=== PATIENT | male | born 1945 | race Hispanic/Latino ===

== ENCOUNTER 2017-06-06 10:03 | Outpatient (CLI) | payer MEDICARE, MEDICAID ==
[~2017-06-06 10:03] MED LIST: Iopamidol 370 76% 100 ML VIAL ONE
== END 2017-06-06 10:04 | disposition home or self-care (01) ==
LOC: BICCT 10:03
PROVIDERS: ATTEND Internal Medicine Cardiovascular Disease
DX: I71.00 Dissection of unspecified site of aorta (principal); I70.202 Unspecified atherosclerosis of native arteries of extremities, left leg
CPT/HCPCS: 75635

== ENCOUNTER 2018-08-27 05:36 | Outpatient (CLI) | payer MEDICARE, MEDICAID ==
[2018-08-27 14:06] LABS: Hemoglobin 12.6 g/dL (14.0-18.0); Mean Corpuscular Hemoglobin 30.4 pg (27.0-31.0); Mean Corpuscular Volume 89.5 fL (78.0-98.0); Mean Platelet Volume 7.1 fL (7.4-10.4); Platelet Count 277 thou/uL (130-400); RBC Distribution Width 12.7 % (11.5-14.5); Red Blood Cell (RBC) Count 4.13 mill/uL (4.70-6.10); White Blood Cell (WBC) Count 10.9 thou/uL (4.8-10.8)
[2018-08-27 14:12] LABS: Prothrombin Time 13.3 SEC (12.0-14.7)
[2018-08-27 14:29] LABS: Anion Gap 14 mmol/L (10-20); BUN (Urea Nitrogen) 12 mg/dL (8.4-25.7); Calc. Creatinine Clearance 0 mL/min (70-130); Calcium 9.9 mg/dL (7.8-10.44); Carbon Dioxide 25 mmol/L (23-31); Chloride 102 mmol/L (98-107); Estimated GFR-MDRD 76; Glucose 99 mg/dL (80-115); Potassium 4.6 mmol/L (3.5-5.1); Sodium 136 mmol/L (136-145)
--- NOTE | 2018-08-28 07:06 | EKG ---
Test Reason : Blood Pressure : / mmHG Vent. Rate : 052 BPM Atrial Rate : 052 BPM P-R Int : 206 ms QRS Dur : 102 ms QT Int : 436 ms P-R-T Axes : 053 039 -23 degrees QTc Int : 405 ms Sinus bradycardia Possible Inferior infarct , age undetermined Anterior infarct , age undetermined Abnormal ECG Confirmed by DR. Peña CORBIN ([id number]) on 08/28/2018 7:06:12 AM Referred By: SHERRY Confirmed By:DR. Peña CORBIN
== END 2018-08-27 05:37 | disposition home or self-care (01) ==
LOC: LABBT 05:36
PROVIDERS: ATTEND Orthopaedic Surgery
DX: Z01.818 Encounter for other preprocedural examination (principal); M17.11 Unilateral primary osteoarthritis, right knee
CPT/HCPCS: 80048; 85027; 85610; 87081; 93005; 93010

== ENCOUNTER 2018-09-08 06:47 | Day surgery (SDC) | payer MEDICARE, MEDICAID ==
[2018-09-08] MEDS ORDERED: Bupivacaine/Epinephrine 0.25% 30 ML VIAL ONE (06:53)
[2018-09-08] MEDS ORDERED: Vancomycin HCl 1.5 GM in Sodium Chloride 0.9% 250 ML 300 ML IVPB SCH ×2 (07:15→12:30)
[2018-09-08] MEDS ORDERED: Midazolam HCl 2 mg/2 ml Vial ONE ×2 (07:16→07:59)
[2018-09-08] MEDS ORDERED: Fentanyl 100 MCG/2 ML VIAL ONE ×4 (07:16→11:58)
[2018-09-08] MEDS ORDERED: Sodium Chloride 0.9% 100 ML ONE (07:42)
[2018-09-08] MEDS ORDERED: Tranexamic Acid 1,000 MG/10 ML VIAL ONE ×2 (07:42→10:48)
[2018-09-08] MEDS ORDERED: Ondansetron PF 4 MG/2 ML Vial IVP PRN (08:12)
[2018-09-08] MEDS ORDERED: Promethazine HCl 25 MG/ML VIAL IM PRN (08:12)
[2018-09-08] MEDS ORDERED: Fentanyl 100 MCG/2 ML VIAL IV PRN (08:12)
[2018-09-08] MEDS ORDERED: HYDROcodone/Acetaminophen 10/325 mg Tablet PO PRN (08:12)
[2018-09-08] MEDS ORDERED: traMADol HCl 50 MG TAB PO PRN ×3 (08:12→12:16)
[2018-09-08] MEDS ORDERED: Ropivacaine HCl/PF 250 ML in Premix Bag 1 BAG NERVE BLCK SCH (08:12)
[2018-09-08] MEDS ORDERED: Zolpidem Tartrate 5 MG TAB PO PRN (08:12)
[2018-09-08] MEDS ORDERED: Nitroglycerin 2% Ointment 1 INCH/1 GM Packet ONE (08:30)
[2018-09-08] MEDS ORDERED: Tranexamic Acid 1,000 MG in Sodium Chloride 0.9% 100 ML IVPB SCH (10:45)
[2018-09-08] MEDS ORDERED: Ropivacaine 0.2% HCl/PF (40 MG/20 ML VIAL) ONE (11:25)
[2018-09-08] MEDS ORDERED: Ropivacaine 0.5% HCl/PF (150 MG/30 ML VIAL) ONE (11:25)
[2018-09-08] MEDS ORDERED: Dexamethasone 20 MG/5 ML VIAL ONE (11:43)
[2018-09-08] MEDS ORDERED: Lidocaine 1% PF 5 ML VIAL ONE (11:43)
[2018-09-08] MEDS ORDERED: Ondansetron PF 4 MG/2 ML Vial ONE (11:43)
[2018-09-08] MEDS ORDERED: PROPOFOL 200 MG/20 ML VIAL ONE (11:43)
[2018-09-08] MEDS ORDERED: ePHEDrine 50 MG/ML VIAL ONE (11:43)
--- NOTE | 2018-09-08 11:45 | RAD ---
RIGHT KNEE TWO VIEWS: 09/08/18 HISTORY: Postop. Total knee prosthesis is in good position. No signs of fracture. IMPRESSION: Placement of total knee prosthesis. POS: TPC
[2018-09-08] MEDS ORDERED: Ketorolac Tromethamine 30 MG/ML VIAL IVP SCH (12:00)
[2018-09-08] MEDS ORDERED: Acetaminophen 325 MG TAB PO PRN (12:16)
[2018-09-08] MEDS ORDERED: Fentanyl 100 MCG/2 ML VIAL SLOW IVP PRN (12:16)
[2018-09-08] MEDS ORDERED: diphenhydrAMINE 25 MG CAP PO PRN (12:16)
[2018-09-08 13:58] VITALS: BMI 35.1
[2018-09-08] MEDS: CEFAZOLIN 2 GM in Premix Bag 1 BAG IVPB SCH (15:32)
[2018-09-08] MEDS: Carvedilol 6.25 MG TAB PO SCH (17:06)
[2018-09-08] MEDS: metFORMIN 500 MG TAB PO SCH (17:06)
[2018-09-08] MEDS: Sodium Chloride 0.9% 1,000 ML IV SCH ×3 (17:07→21:35)
--- NOTE | 2018-09-08 18:09 | PDOC.PN ---
- Subjective Encounter Start Date: 09/08/18 Encounter Start Time: 17:40 Subjective: Patient reports he is doing well postop. Had some irritation from the ruth -: but out now and voiding ok. Mild pain in right knee from surgery. No other -: symptoms. - Objective MAR Reviewed: Yes Vital Signs & Weight: Vital Signs (12 hours) Temp Pulse Resp BP BP Pulse Ox 09/08/18 17:06 155/63 H 09/08/18 13:58 97.5 F L 63 20 139/68 96 Weight Weight 186 lb Phys Exam - Physical Examination Constitutional: NAD HEENT: PERRLA, moist MMs, oral pharynx no lesions Neck: no nodes, no JVD, supple Respiratory: no wheezing, no rales, no rhonchi, clear to auscultation bilateral Cardiovascular: RRR, no significant murmur Gastrointestinal: soft, non-tender, no distention, positive bowel sounds Musculoskeletal: no edema, pulses present postop dressing on right knee, SCDs in place bilaterally Neurological: non-focal, moves all 4 limbs Psychiatric: normal affect, A&O x 3 Dx/Plan (1) Diabetes mellitus type 2 in obese Code(s): E11.69 - TYPE 2 DIABETES MELLITUS WITH OTHER SPECIFIED COMPLICATION; E66.9 - OBESITY, UNSPECIFIED Status: Chronic Comment: on home Metformin, check FSBC ACHS and low ISS (2) Hypertension Code(s): I10 - ESSENTIAL (PRIMARY) HYPERTENSION Status: Chronic Qualifiers: Hypertension type: essential hypertension Qualified Code(s): I10 - Essential (primary) hypertension Comment: on Coreg, Losartan, and Spironolactone (3) CAD (coronary artery disease) Code(s): I25.10 - ATHSCL HEART DISEASE OF [place] CORONARY ARTERY W/O ANG PCTRS Status: Chronic Comment: S/P CABG in 2017 (4) Hyperlipidemia Code(s): E78.5 - HYPERLIPIDEMIA, UNSPECIFIED Status: Chronic Comment: on statin (5) Gout Code(s): M10.9 - GOUT, UNSPECIFIED Status: Chronic (6) Hypothyroidism Code(s): E03.9 - HYPOTHYROIDISM, UNSPECIFIED Status: Chronic Comment: on levothyroxine - Plan cont current plan of care, PT/OT * . - Discharge Day Encounter end time: 18:15 Review of Systems - Review of Systems Constitutional: reports: no symptoms reported Eyes: reports: no symptoms reported ENT: reports: no reported symptoms Cardiovascular: reports: no reported symptoms Respiratory: reports: no reported symptoms GI: reports: no reported symptoms Genitourinary: reports: no reported symptoms Neuro/Psych: reports: no reported symptoms Musculoskeletal/Skin: reports: joint pain(s) Endocrine: reports: no reported symptoms All Other Systems: reports: Reviewed and Negative
[2018-09-08] MEDS ORDERED: Dextrose 5% in Water 1,000 ML IV PRN (19:08)
[2018-09-08] MEDS ORDERED: HumaLOG 300 UNITS/3 ML VIAL SC PRN (19:08)
[2018-09-08] MEDS ORDERED: Dextrose 50% Abboject 50 ML SYRINGE SLOW IVP PRN (19:08)
[2018-09-08] MEDS: Ferrous Gluconate 324 MG TAB PO SCH (20:28)
[2018-09-08] MEDS: Senokot S 8.6-50 MG TAB PO SCH (20:28)
[2018-09-08] MEDS: Vancomycin HCl 1.25 GM in Sodium Chloride 0.9% 250 ML 250 ML IVPB SCH (20:28)
[2018-09-08] MEDS: Aspirin 81 mg Enteric Coated Tablet PO SCH (20:29)
[2018-09-08] MEDS: Atorvastatin Calcium 20 MG TAB PO SCH (20:29)
[2018-09-08] MEDS: Spironolactone 25 MG TAB PO SCH (20:29)
[2018-09-08] MEDS: Ketorolac Tromethamine 30 MG/ML VIAL IVP SCH (20:30)
[2018-09-09] MEDS: CEFAZOLIN 2 GM in Premix Bag 1 BAG IVPB SCH (00:23)
[2018-09-09] MEDS: Ketorolac Tromethamine 30 MG/ML VIAL IVP SCH ×4 (04:30→20:25)
[2018-09-09] MEDS: Levothyroxine Sodium 75 MCG TAB PO SCH (05:00)
[2018-09-09 05:44] LABS: Mean Corpuscular HGB CONC 33.5 g/dL (32.0-36.0); Mean Corpuscular Hemoglobin 30.4 pg (27.0-31.0); Mean Corpuscular Volume 90.7 fL (78.0-98.0); Platelet Count 261 thou/uL (130-400); RBC Distribution Width 12.7 % (11.5-14.5); Red Blood Cell (RBC) Count 3.63 mill/uL (4.70-6.10); White Blood Cell (WBC) Count 15.2 thou/uL (4.8-10.8)
[2018-09-09] MEDS: metFORMIN 500 MG TAB PO SCH ×2 (08:51→17:52)
[2018-09-09] MEDS: Ferrous Gluconate 324 MG TAB PO SCH ×2 (08:52→20:24)
[2018-09-09] MEDS: Carvedilol 6.25 MG TAB PO SCH ×2 (08:52→17:52)
[2018-09-09] MEDS: Multivitamin W/ Minerals 1 TAB PO SCH (08:52)
[2018-09-09] MEDS: Losartan 25 MG TAB PO SCH (08:53)
[2018-09-09] MEDS: Aspirin 81 mg Enteric Coated Tablet PO SCH ×2 (08:53→20:26)
[2018-09-09] MEDS: Sodium Chloride 0.9% 1,000 ML IV SCH ×2 (08:54→19:38)
[2018-09-09] MEDS: Vancomycin HCl 1.25 GM in Sodium Chloride 0.9% 250 ML 250 ML IVPB SCH (08:55)
[2018-09-09] MEDS: Senokot S 8.6-50 MG TAB PO SCH ×2 (08:55→20:25)
--- NOTE | 2018-09-09 09:32 | OP ---
DATE OF PROCEDURE: 09/08/2018 PREOPERATIVE DIAGNOSIS: Right knee osteoarthritis. POSTOPERATIVE DIAGNOSIS: Right knee osteoarthritis. PROCEDURE PERFORMED: Right total knee arthroplasty ANESTHESIOLOGIST: Em Sanz MD. ANESTHESIA: The patient received an LMA, single-shot sciatic adductor canal block. ESTIMATED BLOOD LOSS: 150 mL. TOURNIQUET TIME: 69 minutes at 300 mmHg. ANTIBIOTICS: Ancef 2 g, vancomycin 1.5 g, TXA 1 g. The patient received a [place] Triathlon size 4 femur, 4 tibia, 11 mm CS X3 poly and a 29 patella. COMPLICATIONS: None. HISTORY OF PRESENT ILLNESS: Mr. Nelson is a 72-year-old male with multi years of right knee pain. The patient has a left lower extremity deformity. He had multivessel CABG, which he was medically cleared. The patient has history of diabetes. The patient continued to have pain and failed conservative management. He desired a TKA.We discussed a TKA given his decreased range of motion, his pain. I discussed postoperatively his risk of pain, scar, bleeding, infection, damage to vital structures, decreased range of motion, strength, stiffness, fracture below the stem, loss of life. The patient understood the risks and benefits and elected to proceed. DESCRIPTION OF PROCEDURE: After time-out was performed, the patient's right lower extremity as the operative site based on site, consents, and marking. After time-out, the patient's right lower extremity was prepped and draped in a sterile fashion. The tourniquet was up for a total of 69 minute. Anterior midline incision was made. A patellar arthrotomy was made to expose the patient's tibia. We excised the fat pad, did a medial release. We removed the osteophytes. After that, the distal femur cut at 6, 10 , 0 degrees valgus, 4 degrees of slope, cut and then we removed , placed our block. We sized to a 4 cut anterior, posterior cuts, removed all the osteophytes and placed our pickle fork in position, took more the fat pad to expose lateral compartment. We then mapped out our tibia, cut in 1 degree of varus, -1, 8, 4 degrees of posterior slope. We removed the bone, removed the medial osteophytes. We then placed our tibial tray in position, we placed the lamina oracle forms developer, removed posterior osteophytes, decompressed the PCL, PCL was transected at some point, but still had a large thickened posterior capsule. We removed osteophytes, decompressed the PCL, it ruptured during placement of our implants. We decompressed the MCL with osteophytes off the medial tibia as well as off the medial femur. We removed the menisci and placed a 4 tray and 1/3 tibia down the line of tibial spine. We pinned into position. We then trialed with a 9, went to 11. The patient had good anterior-posterior flexion. Tight in flexion a little bit, which was improved with cleaning the posterior medial aspect of the tibia, obtained a full extension. Good stability in mid flexion, as well as extension, active alignment and final components. We cut his patella down from 24 mm down to about 13, placed a 29 symmetric patella tracked, tracked overall well. We then washed , drilled our lugs for femur, cut our keel for tibia, washed the entire knee out, cemented our tibia, placed our poly, cemented our femur, cemented the patella, removed all excess cement, washed out the joint, closed with #2 Vicryl, #2 Quill , 0 Quill, 2-0 Quill, glue. The patient will be followed at [place] [facility]'s postop protocol, followed inhouse for right total knee arthroplasty. Job ID: [id number] [facility]
[2018-09-09] MEDS ORDERED: Polyethylene Glycol 3350 17 GM Packet PO PRN (10:19)
--- NOTE | 2018-09-09 10:57 | PDOC.PN ---
- Subjective Encounter Start Date: 09/09/18 Encounter Start Time: 10:55 Patient seen and examined for med mngt. No CP/SOB. Pain controlled. No new complaints. No overnight events - Objective MAR Reviewed: Yes Vital Signs & Weight: Vital Signs (12 hours) Temp Pulse Resp BP BP Pulse Ox 09/09/18 08:52 131/75 09/09/18 07:40 98.5 F 60 16 131/75 91 L 09/09/18 04:15 98.1 F 62 16 122/80 94 L 09/09/18 00:32 97.7 F 69 16 112/64 96 Weight Weight 186 lb I&O: 09/08/18 09/09/18 09/10/18 06:59 06:59 06:59 Intake Total 2341.0 Balance 2341.0 Result Diagrams: 09/09/18 05:07 Additional Labs: Accuchecks 09/09/18 09/08/18 05:38 20:47 POC Glucose 114 H 251 H EKG Reviewed by me: Yes (SB) Phys Exam - Physical Examination Constitutional: NAD Respiratory: no wheezing, no rhonchi Cardiovascular: RRR, no rub Gastrointestinal: soft, non-tender, positive bowel sounds Musculoskeletal: no edema Neurological: moves all 4 limbs Dx/Plan - Plan DVT proph w/SCDs IMPRESSION: HTN CAD s/p GA with cardiogenic shock s/p CABG DM2 Obesity BMI 35.1 HLD Hypothyroidism CKD 2 Chronic diastolic HF - compensated PLAN: Cont ASA Cont Coreg/Losartan Cont Statins Cont Levothyroxine Cont Metformin Will follow. Review of Systems - Review of Systems Respiratory: negative: Cough, Dry, Shortness of Breath, Hemoptysis, SOB with Excertion, Pleuritic Pain, Sputum, Wheezing Cardiovascular: negative: chest pain, palpitations, orthopnea, paroxysmal nocturnal dyspnea, edema, light headedness, other Gastrointestinal: negative: Nausea, Vomiting, Abdominal Pain, Diarrhea, Constipation, Melena, Hematochezia, Other - Medications/Allergies Allergies/Adverse Reactions: Allergies Allergy/AdvReac Type Severity Reaction Status Date / Time No Known Drug Allergies Allergy Verified 08/27/18 13:06 Medications: Current Medications Acetaminophen (Tylenol) 650 mg PO Q4H PRN PRN Reason: Headache/Fever or Pain Hydrocodone Bitart/Acetaminophen ([place] 10/325) 1 tab PO Q4H PRN PRN Reason: Pain (1-3) Hydrocodone Bitart/Acetaminophen ([place] 10/325) 2 tab PO Q4H PRN PRN Reason: PAIN (4-6) Aspirin (Ecotrin) 81 mg PO BID [facility] Last Admin: 09/09/18 08:53 Dose: 81 mg Atorvastatin Calcium (Lipitor) 20 mg PO HS [facility] Last Admin: 09/08/18 20:29 Dose: 20 mg Carvedilol (Coreg) 6.25 mg PO BID[facility] Last Admin: 09/09/18 08:52 Dose: 6.25 mg Dextrose/Water (Dextrose 50%) 25 gm SLOW IVP PRN PRN PRN Reason: Hypoglycemia Diphenhydramine HCl (Benadryl) 25 mg PO Q6H PRN PRN Reason: Itching Fentanyl (Sublimaze) 50 mcg IV Q1H PRN PRN Reason: BREAKTHROUGH PAIN Fentanyl (Sublimaze) 100 mcg SLOW IVP Q1H PRN PRN Reason: Severe Pain (7-10) Ferrous Gluconate (Fergon) 324 mg PO BID [facility] Last Admin: 09/09/18 08:52 Dose: 324 mg Glucagon (Glucagon) 1 mg IM PRN PRN PRN Reason: Hypoglycemia Ropivacaine 250 ml/ Device 250 mls @ 0 mls/hr NERVE BLCK INF [facility] Sodium Chloride (Normal Saline 0.9%) 1,000 mls @ 100 mls/hr IV .Q10H [facility] Last Admin: 09/09/18 08:54 Dose: Not Given Vancomycin HCl 1.25 gm/ Sodium (Chloride) 250 mls @ 166.667 mls/hr IVPB 08, 1999 [facility] Last Admin: 09/09/18 08:55 Dose: 250 mls Dextrose/Water (D5w) 1,000 mls @ 0 mls/hr IV .Q0M PRN PRN Reason: Hypoglycemia Insulin Human Lispro (Humalog) 0 units SC .MILD SLIDING SCALE PRN PRN Reason: Mild Correctional Scale Insulin Human Lispro (Humalog) 0 units SC .BEDTIME SLIDING SC PRN PRN Reason: Bedtime Correctional Scale Last Admin: 09/08/18 20:54 Dose: 3 unit Iron/Minerals/Multivitamins (Theragran M) 1 tab PO DAILY [facility] Last Admin: 09/09/18 08:52 Dose: 1 tab Ketorolac Tromethamine (Toradol) 15 mg IVP 0330,0930,1530,2130 [facility] Stop: 09/10/18 15:31 Last Admin: 09/09/18 08:55 Dose: 15 mg Levothyroxine Sodium (Synthroid) 75 mcg PO 0600 [facility] Last Admin: 09/09/18 05:00 Dose: 75 mcg Losartan Potassium (Cozaar) 100 mg PO DAILY [facility] Last Admin: 09/09/18 08:53 Dose: 100 mg Metformin HCl (Glucophage) 1,000 mg PO BID[facility] Last Admin: 09/09/18 08:51 Dose: 1,000 mg Ondansetron HCl (Zofran) 4 mg IVP Q6H PRN PRN Reason: Nausea/Vomiting Pantoprazole Sodium (Protonix) 40 mg PO [facility] Last Admin: 09/08/18 20:29 Dose: 40 mg Polyethylene Glycol (Miralax) 17 gm PO DAILY PRN PRN Reason: Constipation Promethazine HCl (Phenergan) 12.5 mg IM Q4H PRN PRN Reason: Nausea Senna/Docusate Sodium (Senokot S) 2 tab PO BID [facility] Last Admin: 09/09/18 08:55 Dose: Not Given Sodium Chloride (Flush - Normal Saline) 10 ml IVF PRN PRN PRN Reason: Saline Flush Spironolactone (Aldactone) 25 mg PO HS [facility] Last Admin: 09/08/18 20:29 Dose: 25 mg Tramadol HCl (Ultram) 50 mg PO Q6H PRN PRN Reason: Mild Pain (1-3) Tramadol HCl (Ultram) 100 mg PO Q6H PRN PRN Reason: Moderate Pain (4-6) Zolpidem Tartrate (Ambien) 5 mg PO HSPRN PRN PRN Reason: Insomnia
[2018-09-09] MEDS: Atorvastatin Calcium 20 MG TAB PO SCH (20:24)
[2018-09-09] MEDS: Spironolactone 25 MG TAB PO SCH (20:25)
[2018-09-10] MEDS: Ketorolac Tromethamine 30 MG/ML VIAL IVP SCH ×3 (03:48→18:04)
[2018-09-10] MEDS: Sodium Chloride 0.9% 1,000 ML IV SCH ×2 (04:13→12:12)
[2018-09-10] MEDS: HYDROcodone/Acetaminophen 10/325 mg Tablet PO PRN ×3 (05:34→17:59)
[2018-09-10] MEDS: Levothyroxine Sodium 75 MCG TAB PO SCH (05:34)
[2018-09-10 06:07] LABS: Hemoglobin 10.7 g/dL (14.0-18.0); Mean Corpuscular HGB CONC 33.4 g/dL (32.0-36.0); Mean Corpuscular Hemoglobin 30.3 pg (27.0-31.0); Mean Corpuscular Volume 90.8 fL (78.0-98.0); Mean Platelet Volume 7.3 fL (7.4-10.4); Platelet Count 245 thou/uL (130-400); RBC Distribution Width 13.1 % (11.5-14.5); Red Blood Cell (RBC) Count 3.51 mill/uL (4.70-6.10); White Blood Cell (WBC) Count 11.6 thou/uL (4.8-10.8)
[2018-09-10 07:39] LABS: Vancomycin, Trough 11.9 ug/mL
[2018-09-10] MEDS: Aspirin 81 mg Enteric Coated Tablet PO SCH ×2 (08:15→21:05)
[2018-09-10] MEDS: metFORMIN 500 MG TAB PO SCH ×2 (08:15→17:59)
[2018-09-10] MEDS: Multivitamin W/ Minerals 1 TAB PO SCH (08:15)
[2018-09-10] MEDS: Ferrous Gluconate 324 MG TAB PO SCH (08:16)
[2018-09-10] MEDS: Losartan 25 MG TAB PO SCH (08:19)
--- NOTE | 2018-09-10 10:11 | PDOC.PN ---
- Subjective Encounter Start Date: 09/10/18 Encounter Start Time: 10:09 Patient seen and examined for med mngt. Pain controlled. No CP/SOB/N/V. No new complaints. No overnight events - Objective MAR Reviewed: Yes Vital Signs & Weight: Vital Signs (12 hours) Temp Pulse Resp BP Pulse Ox 09/10/18 07:57 98.1 F 57 L 18 137/75 93 L 09/10/18 04:05 98.7 F 76 16 122/67 91 L 09/10/18 00:18 99.0 F 65 16 127/69 91 L Weight Admit Weight 186 lb Weight 186 lb I&O: 09/09/18 09/10/18 09/11/18 06:59 06:59 06:59 Intake Total 2341.0 3270 Output Total 3700 Balance 2341.0 -430 Result Diagrams: 09/10/18 04:42 Additional Labs: Accuchecks 09/10/18 09/09/18 09/09/18 05:45 21:02 15:57 POC Glucose 140 H 175 H 143 H 09/09/18 11:41 POC Glucose 191 H EKG Reviewed by me: Yes (SB) Dx/Plan - Plan DVT proph w/SCDs IMPRESSION: HTN CAD s/p [place] with cardiogenic shock s/p CABG DM2 - on sliding scale Obesity BMI 35.1 HLD Hypothyroidism CKD 2 Chronic diastolic HF - compensated PLAN: Cont ASA/Coreg/Losartan/Statins Cont Levothyroxine Cont Metformin with sliding scale Miralax x 1 then daily Cont other meds as below Review of Systems - Review of Systems Respiratory: negative: Cough, Dry, Shortness of Breath, Hemoptysis, SOB with Excertion, Pleuritic Pain, Sputum, Wheezing Cardiovascular: negative: chest pain, palpitations, orthopnea, paroxysmal nocturnal dyspnea, edema, light headedness, other Gastrointestinal: negative: Nausea, Vomiting, Abdominal Pain, Diarrhea, Constipation, Melena, Hematochezia, Other - Medications/Allergies Allergies/Adverse Reactions: Allergies Allergy/AdvReac Type Severity Reaction Status Date / Time No Known Drug Allergies Allergy Verified 08/27/18 13:06 Medications: Current Medications Acetaminophen (Tylenol) 650 mg PO Q4H PRN PRN Reason: Headache/Fever or Pain Hydrocodone Bitart/Acetaminophen ([place] 10/325) 1 tab PO Q4H PRN PRN Reason: Pain (1-3) Last Admin: 09/10/18 05:34 Dose: 1 tab Hydrocodone Bitart/Acetaminophen ([place] 10/325) 2 tab PO Q4H PRN PRN Reason: PAIN (4-6) Aspirin (Ecotrin) [address] [facility] Last Admin: 09/10/18 08:15 Dose: 81 mg Atorvastatin Calcium (Lipitor) [address] [facility] Last Admin: 09/09/18 20:24 Dose: 20 mg Carvedilol (Coreg) 6.25 mg PO BID[facility] Last Admin: 09/09/18 17:52 Dose: 6.25 mg Dextrose/Water (Dextrose 50%) 25 gm SLOW IVP PRN PRN PRN Reason: Hypoglycemia Diphenhydramine HCl (Benadryl) 25 mg PO Q6H PRN PRN Reason: Itching Fentanyl (Sublimaze) 50 mcg IV Q1H PRN PRN Reason: BREAKTHROUGH PAIN Fentanyl (Sublimaze) 100 mcg SLOW IVP Q1H PRN PRN Reason: Severe Pain (7-10) Ferrous Gluconate (Fergon) [address] [facility] Last Admin: 09/10/18 08:16 Dose: 324 mg Glucagon (Glucagon) 1 mg IM PRN PRN PRN Reason: Hypoglycemia Ropivacaine 250 ml/ Device 250 mls @ 0 mls/hr NERVE BLCK INF [facility] Last Admin: 09/09/18 13:04 Dose: 250 mls Sodium Chloride (Normal Saline 0.9%) 1,000 mls @ 100 mls/hr IV .Q10H [facility] Last Admin: 09/10/18 04:13 Dose: Not Given Dextrose/Water (D5w) 1,000 mls @ 0 mls/hr IV .Q0M PRN PRN Reason: Hypoglycemia Insulin Human Lispro (Humalog) 0 units SC .MILD SLIDING SCALE PRN PRN Reason: Mild Correctional Scale Insulin Human Lispro (Humalog) 0 units SC .BEDTIME SLIDING SC PRN PRN Reason: Bedtime Correctional Scale Last Admin: 09/08/18 20:54 Dose: 3 unit Iron/Minerals/Multivitamins (Theragran M) [address] [facility] Last Admin: 09/10/18 08:15 Dose: 1 tab Ketorolac Tromethamine (Toradol) 15 mg IVP 0330,0930,1530,2130 [facility] Stop: 09/10/18 15:31 Last Admin: 09/10/18 03:48 Dose: 15 mg Levothyroxine Sodium (Synthroid) [address] [facility] Last Admin: 09/10/18 05:34 Dose: 75 mcg Losartan Potassium (Cozaar) [address] [facility] Last Admin: 09/10/18 08:19 Dose: 100 mg Metformin HCl (Glucophage) 1,000 mg PO BID[facility] Last Admin: 09/10/18 08:15 Dose: 1,000 mg Ondansetron HCl (Zofran) 4 mg IVP Q6H PRN PRN Reason: Nausea/Vomiting Pantoprazole Sodium (Protonix) 40 mg PO [facility] Last Admin: 09/09/18 20:24 Dose: 40 mg Polyethylene Glycol (Miralax) 17 gm PO DAILY PRN PRN Reason: Constipation Promethazine HCl (Phenergan) 12.5 mg IM Q4H PRN PRN Reason: Nausea Senna/Docusate Sodium (Senokot S) [address] [facility] Last Admin: 09/09/18 20:25 Dose: Not Given Sodium Chloride (Flush - Normal Saline) 10 ml IVF PRN PRN PRN Reason: Saline Flush Spironolactone (Aldactone) 25 mg PO [facility] Last Admin: 09/09/18 20:25 Dose: 25 mg Tramadol HCl (Ultram) 50 mg PO Q6H PRN PRN Reason: Mild Pain (1-3) Tramadol HCl (Ultram) 100 mg PO Q6H PRN PRN Reason: Moderate Pain (4-6) Zolpidem Tartrate (Ambien) 5 mg PO HSPRN PRN PRN Reason: Insomnia
[2018-09-10] MEDS ORDERED: Bisacodyl 10 MG SUPP PR PRN (10:13)
[2018-09-10] MEDS ORDERED: Polyethylene Glycol 3350 17 GM Packet PO SCH (10:15)
[2018-09-10] MEDS: Senokot S 8.6-50 MG TAB PO SCH ×2 (12:16→21:06)
[2018-09-10] MEDS: Carvedilol 6.25 MG TAB PO SCH ×2 (17:54→17:59)
[2018-09-10] MEDS: HumaLOG 300 UNITS/3 ML VIAL SC PRN (18:01)
[2018-09-10] MEDS: Spironolactone 25 MG TAB PO SCH (21:05)
[2018-09-10] MEDS: Atorvastatin Calcium 20 MG TAB PO SCH (21:06)
[2018-09-11] MEDS: Sodium Chloride 0.9% 1,000 ML IV SCH ×2 (03:04→09:23)
[2018-09-11] MEDS ORDERED: Calcium Acetate 667 MG CAP ONE (05:24)
[2018-09-11] MEDS: Levothyroxine Sodium 75 MCG TAB PO SCH (05:49)
[2018-09-11 06:51] LABS: Hemoglobin 10.8 g/dL (14.0-18.0); Mean Corpuscular HGB CONC 33.6 g/dL (32.0-36.0); Mean Corpuscular Hemoglobin 30.5 pg (27.0-31.0); Mean Corpuscular Volume 90.6 fL (78.0-98.0); Platelet Count 255 thou/uL (130-400); RBC Distribution Width 12.8 % (11.5-14.5); Red Blood Cell (RBC) Count 3.54 mill/uL (4.70-6.10); White Blood Cell (WBC) Count 12.3 thou/uL (4.8-10.8)
[2018-09-11] MEDS: metFORMIN 500 MG TAB PO SCH (08:51)
[2018-09-11] MEDS: Losartan 25 MG TAB PO SCH (08:52)
[2018-09-11] MEDS: Aspirin 81 mg Enteric Coated Tablet PO SCH (08:52)
[2018-09-11] MEDS: Carvedilol 6.25 MG TAB PO SCH (08:52)
[2018-09-11] MEDS: Ferrous Gluconate 324 MG TAB PO SCH (08:53)
[2018-09-11] MEDS: Multivitamin W/ Minerals 1 TAB PO SCH (08:53)
[2018-09-11] MEDS: Senokot S 8.6-50 MG TAB PO SCH (08:53)
[2018-09-11] MEDS ORDERED: Polyethylene Glycol 3350 17 GM Packet PO SCH (09:00)
--- NOTE | 2018-09-11 09:43 | PDOC.EVN ---
Event Note - Event Note Event Note: Chart reviewed, patient seen. No complaints. VSS. Plan to discharge noted, will sign off.
[2018-09-11] MEDS: HumaLOG 300 UNITS/3 ML VIAL SC PRN (11:14)
[2018-09-11] MEDS: HYDROcodone/Acetaminophen 10/325 mg Tablet PO PRN (11:33)
[2018-09-11 12:32] VITALS: BP 150/79; TEMP 97.9
== END 2018-09-11 12:36 ==
LOC: SDC 06:47 → SJJU 11:45 → SDC 09-11 12:36
PROVIDERS: ATTEND Orthopaedic Surgery
PROC: 0SRC0J9 Replacement of Right Knee Joint with Synthetic Substitute, Cemented, Open Approach (ICD-10-PCS; principal; 2018-09-08)
DX: M17.11 Unilateral primary osteoarthritis, right knee (principal); I13.0 Hypertensive heart and chronic kidney disease with heart failure and stage 1 through stage 4 chronic kidney disease, or unspecified chronic kidney disease; E11.22 Type 2 diabetes mellitus with diabetic chronic kidney disease; N18.2 Chronic kidney disease, stage 2 (mild); I50.32 Chronic diastolic (congestive) heart failure; I25.10 Atherosclerotic heart disease of native coronary artery without angina pectoris; E78.5 Hyperlipidemia, unspecified; M10.9 Gout, unspecified; E03.9 Hypothyroidism, unspecified; I25.2 Old myocardial infarction; E66.9 Obesity, unspecified; Z68.35 Body mass index [BMI] 35.0-35.9, adult; Z95.1 Presence of aortocoronary bypass graft; Z79.84 Long term (current) use of oral hypoglycemic drugs; Z79.899 Other long term (current) drug therapy
CPT/HCPCS: 27447; 73560; 80202; 82962; 85027; 86850; 86900; 86901; 97116 ×3; 97139 ×4; 97150 ×2; C1713; C1776; 36415; 36416; J0690; J1100; J1885; J2001; J2250; J2405; J2704; J2795; J3010; J3370; J3490; J7050

== ENCOUNTER 2021-01-08 11:45 | Observation (INO) | payer MEDICARE, MEDICAID ==
[2021-01-08 12:17] LABS: #Basophils 0.1 thou/uL (0.0-0.2); #Eosinphils 0.1 thou/uL (0.0-0.7); #Lymphocytes 2.3 thou/uL (1.20-3.40); #Monocytes 0.8 thou/uL (0.11-0.59); #Neutrophils 6.1 thou/uL (1.40-6.50); %Basophils 1.1 % (0.0-1.0); %Eosinophils 1.1 % (0.0-10.0); %Lymphocytes 24.6 % (21.0-51.0); %Monocytes 8.8 % (0.0-10.0); %Neutrophils 64.4 % (42.0-75.0); Hemoglobin 14.6 g/dL (14.0-18.0); Mean Corpuscular HGB CONC 34.3 g/dL (32.0-36.0); Mean Corpuscular Volume 93.3 fL (78.0-98.0); Mean Platelet Volume 7.3 fL (7.4-10.4); Platelet Count 285 thou/uL (130-400); RBC Distribution Width 13.8 % (11.5-14.5); Red Blood Cell (RBC) Count 4.55 mill/uL (4.70-6.10); White Blood Cell (WBC) Count 9.5 thou/uL (4.8-10.8)
[2021-01-08 12:48] LABS: ALT (SGPT) 18 U/L (8-55); AST (SGOT) 21 U/L (5-34); Albumin 4.3 g/dL (3.4-4.8); Alkaline Phosphatase 65 U/L (40-110); Anion Gap 12 mmol/L (10-20); BUN (Urea Nitrogen) 21 mg/dL (8.4-25.7); Bilirubin, Total 0.4 mg/dL (0.2-1.2); Calc. Creatinine Clearance 0 mL/min (70-130); Calcium 9.9 mg/dL (7.8-10.44); Carbon Dioxide 22 mmol/L (23-31); Chloride 109 mmol/L (98-107); Globulin 3.2 g/dL (2.4-3.5); Glucose 184 mg/dL (83-110); Potassium 4.2 mmol/L (3.5-5.1); Protein, Total 7.5 g/dL (5.8-8.1); Sodium 139 mmol/L (136-145)
[2021-01-08] MEDS ORDERED: Nitroglycerin 2% Ointment 1 INCH/1 GM Packet ONE (13:17)
[2021-01-08] MEDS ORDERED: Aspirin Chewable 81 MG TAB ONE (13:17)
[2021-01-08 15:47] LABS: Troponin I Less than 0.010 ng/mL (< 0.028)
[2021-01-08] MEDS ORDERED: Nitroglycerin 0.4 MG TAB (25 Tab Bottle) SL PRN (17:03)
[2021-01-08] MEDS: Carvedilol 6.25 MG TAB PO SCH (18:30)
[2021-01-08] MEDS ORDERED: Ondansetron ODT 4 MG TAB PO PRN (19:39)
[2021-01-08] MEDS ORDERED: Ondansetron PF 4 MG/2 ML Vial IVP PRN (19:40)
[2021-01-08] MEDS ORDERED: Acetaminophen 325 MG TAB PO PRN (19:41)
[2021-01-08 20:32] LABS: Troponin I Less than 0.010 ng/mL (< 0.028)
[2021-01-08] MEDS ORDERED: Atorvastatin Calcium 20 MG TAB PO SCH (21:00)
[2021-01-08] MEDS: Senokot S 8.6-50 MG TAB PO SCH (21:46)
[2021-01-08] MEDS: Ferrous Gluconate 324 MG TAB PO SCH (21:46)
[2021-01-08] MEDS: Atorvastatin Calcium 40 MG TAB PO SCH (21:49)
[2021-01-08] MEDS: Aspirin 81 mg Enteric Coated Tablet PO SCH (21:49)
[2021-01-08] MEDS: Heparin 5,000 UNITS/ML VIAL SC SCH (21:49)
[2021-01-09 00:01] VITALS: BMI 29.6
[2021-01-09] MEDS: Levothyroxine Sodium 75 MCG TAB PO SCH (06:20)
[2021-01-09 08:24] LABS: SARS-CoV-2 PCR by NAA Not Detected (NotDetected)
[2021-01-09] MEDS ORDERED: Glucosamine/Msm/Chondroitin A [Glucosamine Chondroitin Msm] PO SCH (09:00)
[2021-01-09] MEDS ORDERED: Sodium Chloride 0.9% 10 ML ONE (09:39)
[2021-01-09] MEDS: Carvedilol 6.25 MG TAB PO SCH ×2 (10:21→16:59)
[2021-01-09] MEDS: Senokot S 8.6-50 MG TAB PO SCH ×2 (10:21→20:38)
[2021-01-09] MEDS: Spironolactone 25 MG TAB PO SCH (10:21)
[2021-01-09] MEDS: Aspirin 81 mg Enteric Coated Tablet PO SCH ×2 (10:21→20:37)
[2021-01-09] MEDS: Ferrous Gluconate 324 MG TAB PO SCH ×2 (10:21→20:37)
[2021-01-09] MEDS: Heparin 5,000 UNITS/ML VIAL SC SCH ×3 (10:22→20:37)
[2021-01-09] MEDS ORDERED: ADENOSINE 60 MG/20 ML VIAL ONE (14:52)
[2021-01-09] MEDS: Atorvastatin Calcium 40 MG TAB PO SCH (20:37)
[2021-01-10] MEDS: Levothyroxine Sodium 75 MCG TAB PO SCH (06:21)
[2021-01-10] MEDS: Senokot S 8.6-50 MG TAB PO SCH (10:59)
[2021-01-10] MEDS: Aspirin 81 mg Enteric Coated Tablet PO SCH (10:59)
[2021-01-10] MEDS: Carvedilol 6.25 MG TAB PO SCH (11:00)
[2021-01-10] MEDS: Ferrous Gluconate 324 MG TAB PO SCH (11:00)
[2021-01-10] MEDS: Spironolactone 25 MG TAB PO SCH (11:01)
[2021-01-10] MEDS: Heparin 5,000 UNITS/ML VIAL SC SCH ×2 (11:05→15:17)
[2021-01-10 17:17] VITALS: BP 134/62; TEMP 97.8
== END 2021-01-10 16:55 | disposition home or self-care (01) ==
LOC: ERS 11:45 → ERHOLD 14:02 → 2NO 20:01
PROVIDERS: ADMIT Internal Medicine; ATTEND Internal Medicine
DX: R07.9 Chest pain, unspecified (principal); I25.10 Atherosclerotic heart disease of native coronary artery without angina pectoris; I10 Essential (primary) hypertension; E11.9 Type 2 diabetes mellitus without complications; E78.5 Hyperlipidemia, unspecified; Z20.822 Contact with and (suspected) exposure to COVID-19; Z79.82 Long term (current) use of aspirin; Z79.84 Long term (current) use of oral hypoglycemic drugs; Z79.899 Other long term (current) drug therapy; Z87.891 Personal history of nicotine dependence; Z95.1 Presence of aortocoronary bypass graft
CPT/HCPCS: 71045; 78452; 80053; 82962 ×3; 84484 ×2; 85025; 93005; 93017; 96372 ×2; 99285; A9500; G0378 ×4; U0003; U0005; 36415; 36416; J0153; J1644